=== PATIENT | female | born 1985 | race African-American/Black ===

== ENCOUNTER 2021-11-11 11:27 | Emergency (ER) | payer OTHER, SELFPAY ==
--- NOTE | ~2021-11-11 | CT_ITS ---
EXAMINATION: CT abdomen pelvis wo con DATE: 11/11/2021 14:12 INDICATION: L sided abd pain TECHNIQUE: Computed tomography (CT) of the abdomen and pelvis was performed without intravenous contr ast. Automated exposure control and iterative reconstruction technique were employed. The dose-length product was 1524.28 mGy-cm. COMPARISON: None FINDINGS: Lower thorax: Unremarkable. Liver: Normal. Biliary/Gallbladder: Gallbladder is normal. No bile duct dilation. Spleen: Normal. Pancreas: No mass or duct dilation. Adrenals:No mass. Kidneys: No mass, stone, or hydronephrosis. GI tract: No small or large bowel dilation. Appendix not visualized. Mesentery/Peritoneum: No ascites, mass, or free air. Retroperitoneum: No mass. Pelvis: Pelvic organs are within normal limits. Bones/Soft Tissues: Soft tissues and body wall unremarkable. No acute osseous finding. Additional Findings: None. IMPRESSION: No acute abdominopelvic process detected. Reviewed, dictated and finalized at location K.
--- NOTE | ~2021-11-11 | XR_ITS ---
EXAMINATION: XR chest 2V DATE: 11/11/2021 12:11 INDICATION: Left-sided chest pain TECHNIQUE: PA and lateral views of the chest are obtained. COMPARISON: 10/09/2021 FINDINGS: The lungs are free of acute opacities. There is no pleural effusion or pneumothorax. The ca rdiomediastinal silhouette is normal. The visualized bones and soft tissues are unremarkable. IMPRESSION: 1. No acute cardiopulmonary abnormality. Reviewed, dictated and finalized at location A.
--- NOTE | 2021-11-11 11:28 | ECG_ITS ---
Measurements Intervals [place] Rate: 80 P: 12 GA: 161 QRS: 37 QRSD: 81 T: 1 QT: 371 QTc: 428 Interpretive Statements SINUS RHYTHM LOW QRS VOLTAGE IN PRECORDIAL LEADS CONSIDER INFERIOR INFARCT, AGE INDETERMINATE BORDERLINE T WAVE ABNORMALITY- ANTERIOR LEADS ABNORMAL ECG Electronically Signed On 11-11-2021 11:48:27 CDT by Alexandru Navarrete D.O.
[2021-11-11 11:38] VITALS: BP 125/98; PULSE 80; RESP 18; TEMP 36.4; O2SAT 100
[2021-11-11 11:51] LABS: Basophils Percent Auto 0.4 % (0.2-1.2); Eosinophils Absolute Auto 0.1 K/mm3 (0-0.3); Eosinophils Percent Auto 0.9 % (0-4.4); Immature Granulocyte Absolute 0.01 K/mm3 (0.00-0.031); Immature Granulocyte Percent A 0.2 % (0-0.5); Lymphocytes Absolute Auto 2.69 K/mm3 (0.9-3.2); Lymphocytes Percent Auto 48.2 % (18.3-44.2); Mean Corpuscular HGB Conc 30.8 g/dl (32-36); Mean Corpuscular Hemoglobin 26.1 pg (26-34); Mean Corpuscular Volume 84.8 fl (80-100); Mean Platelet Volume 11.1 fl (7.4-10.4); Monocytes Absolute Auto 0.3 K/mm3 (0.1-0.6); Monocytes Percent Auto 5.9 % (2.6-8.5); Neutrophils Absolute Auto 2.5 K/mm3 (1.3-6.7); Neutrophils Percent Auto 44.4 % (45.5-73.1); Platelet Count Result 363 k/mm3 (150-375); Red Cell Distribution Width 16.3 % (11.5-14.5); White Blood Count 5.6 K/mm3 (4.5-10.0)
[2021-11-11] MEDS: ASPIRIN 81 MG CHEWABLE TABLET 324 MG PO (11:55)
[2021-11-11 12:02] LABS: Prothrombin Time 13.2 Seconds (11.1-14.7)
[2021-11-11 12:03] LABS: Alanine Aminotransferase 20 U/L (4-35); Albumin Level 4.7 g/dL (3.5-5.1); Alkaline Phosphatase 111 U/L (38-126); Anion Gap 5 mmol/L (8-16); Aspartate Amino Transferase 40 U/L (14-36); Blood Urea Nitrogen 13 mg/dL (7-17); Calcium 9.2 mg/dL (8.4-10.2); Carbon Dioxide 25 mmol/L (22-30); Chloride 106 mmol/L (98-107); Estimated CRCL calculation 130 ml/min; Estimated Glomerular Filt Rate > 60; Glucose 111 mg/dL (65-110); Lipase 51 U/L (23-300); Partial Thromboplastin Time 25.2 SECONDS (22.3-36.8); Potassium 4.7 mmol/L (3.4-5.0); Sodium 136 mmol/L (137-145)
[2021-11-11 12:12] LABS: Troponin I 0.018 ng/mL (0.000-0.034)
[2021-11-11 12:45] LABS: D Dimer 0.29 ug/mL (<0.48)
[2021-11-11] MEDS: KETOROLAC 30 MG/ML VIAL (*BKC) IV PUSH (12:45)
[2021-11-11 13:33] VITALS: BP 133/78; PULSE 77; RESP 16; O2SAT 99
[2021-11-11 13:47] VITALS: BP 132/85; PULSE 73; RESP 18; O2SAT 100
[2021-11-11 14:03] VITALS: BP 138/65; PULSE 75; PULSE 76; RESP 16; O2SAT 100
[2021-11-11 14:04] VITALS: BP 138/65; PULSE 72; RESP 17; O2SAT 100
[2021-11-11 15:09] VITALS: BP 129/87; PULSE 72; RESP 18; O2SAT 100
[2021-11-11 15:38] LABS: Troponin I < 0.012 ng/mL (0.000-0.034)
--- NOTE | 2021-11-11 16:04 | ED.CHESTPAIN ---
HPI - Chest Pain General Chief Complaint: Chest Pain Stated Complaint: chest pain Time Seen by Provider: 11/11/21 12:03 Source: RN notes reviewed History of Present Illness HPI narrative: Patient presents to emergency department from home for left-sided chest pain. Patient states symptoms began approximately 1 week ago and have been constant since that time the pain is located her left chest and is described as sharp and stabbing pain is worse with deep inspiration and coughing goes in the left arm states is been associated with a cough has been nonproductive as well as abdominal pain and diarrhea states that she began to get sick in general approximately 10 days ago patient noted pain in her upper abdomen she denies any fevers or chills or vomiting Related Data Allergies Allergy/AdvReac Type Severity Reaction Status Date / Time No Known Allergies Allergy Verified 11/11/21 11:54 Review of Systems Review of Systems: Gen.: Denies fevers or chills ENT: Denies congestion Respiratory: Reports cough CV: See HPI GI: Reports left upper abdominal pain Musculoskeletal: Denies back pain or muscle pain Neuro: Denies numbness, tingling, weakness or focal weakness Skin: Denies rash Except as documented, all other systems reviewed and negative [facility] Past Medical History Medical History (Updated 11/11/21 @ 16:09 by Dutch Gibson DO) Patient denies significant medical history Social History Social History (Updated 11/11/21 @ 16:05 by Dutch Gibson DO) Smoking status: Never smoker Exam Narrative: APPEARANCE: No acute distress, nontoxic, resting in bed EYES: EOMI HEENT: Normocephalic, atraumatic, OMM RESPIRATORY: No respiratory distress Clear to auscultation bilaterally with no rhonchi wheezing or rales. CARDIOVASCULAR: Regular rate and rhythm without murmurs rubs or gallops. Chest: Tender palpation left anterior chest wall pain increased with deep inspiration and coughing ABDOMINAL: Soft, nondistended tender palpation left upper quadrant no tenderness left lower quadrant, right upper quadrant right lower quadrant no rebound or guarding MUSCULOSKELETAl: Moves all extremities. No clubbing, cyanosis or edema. NEURO: Awake and alert. Following commands, speech normal, no focal deficits SKIN:: Warm, dry. No rashes lesions or abrasions PSYCHIATRIC: Normal affect/mood, Course Course Emergency Course: Patient states pain is improved with medication Discussed with patient results of workup and diagnosis. Discussed need for follow-up with primary care, proper use of medication, and reasons to return to the emergency department. Patient understands and agrees to current treatment plan Vital Signs Vital signs: Vital Signs Temperature 97.5 F L 11/11/21 11:38 Pulse Rate 80 11/11/21 11:38 Respiratory Rate 18 11/11/21 11:38 Blood Pressure 125/98 H 11/11/21 11:38 Pulse Oximetry 100 11/11/21 11:38 Temperature 97.5 F L 11/11/21 11:38 Pulse Rate 72 11/11/21 15:09 Respiratory Rate 18 11/11/21 15:09 Blood Pressure 129/87 11/11/21 15:09 Pulse Oximetry 100 11/11/21 15:09 MDM - Chest Pain MDM Narrative Medical decision making narrative: Patient's EKGs and labs are without significant high risk changes. Cardiac risk factors reviewed. Patient is felt likely low risk for ACS and reasonable for further risk stratification testing as an outpatient. Pain was not sudden or maximal in onset without tearing or ripping quality. No other signs of symptoms suggest aortic dissection. A low-risk Wells criteria is noted, PE is felt to be unlikely. No pneumonia seen on evaluation today. Patient is felt to be a reasonable candidate for continued evaluation as an outpatient. Patient with constant pain for the past 1 week with 2 negative troponins in the ER Lab Data Result diagrams: 11/11/21 11:43 11/11/21 11:43 Labs: Lab Results 11/11/21 11/11/21 11/11/21 Range/Units 11:43 11:43 11:43 WB
== END 2021-11-11 16:22 | disposition home or self-care (01) ==
PROVIDERS: Emergency Medicine; Emergency Provider Emergency Medicine; PCP Internal Medicine
DX: R07.89 Other chest pain (principal); R94.31 Abnormal electrocardiogram [ECG] [EKG]
CPT/HCPCS: 36415; 71046; 74176; 80053; 81025; 83690; 84484; 85025; 85380; 85610; 85730; 93005; 96374; 99284; A9270; J1885

== ENCOUNTER 2021-11-21 09:18 | Emergency (ER) | payer OTHER, SELFPAY ==
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
[2021-11-21 09:20] VITALS: BP 144/79; PULSE 91; RESP 18; TEMP 36.3; O2SAT 100
[2021-11-21 11:27] VITALS: BP 144/79; PULSE 91; RESP 18; O2SAT 98
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
[2021-11-21] MEDS: ACETAMINOPHEN 325 MG TABLET 650 MG PO (14:09)
[2021-11-21 15:37] VITALS: BP 153/85; PULSE 85; RESP 18; O2SAT 98
== END 2021-11-21 15:35 | disposition home or self-care (01) ==
PROVIDERS: Emergency Provider Emergency Medicine; PCP Internal Medicine
DX: S13.9XXA Sprain of joints and ligaments of unspecified parts of neck, initial encounter (principal); S33.5XXA Sprain of ligaments of lumbar spine, initial encounter; S80.02XA Contusion of left knee, initial encounter; V43.52XA Car driver injured in collision with other type car in traffic accident, initial encounter
CPT/HCPCS: 72100; 72125; 73030; 73560; 99284; A9270